=== PATIENT | male | born 1960 | race African-American/Black ===

== ENCOUNTER 2024-04-26 19:12 | Emergency (ER) | payer SELFPAY ==
[~2024-04-26] VITALS: Ht 182.9 cm; Wt 111.0 kg
[2024-04-26 19:14] VITALS: O2SAT 98
[2024-04-26] MEDS: KETOROLAC 15MG/ML VIAL IM ONE (22:04)
[2024-04-26] MEDS: CYCLOBENZAPRINE 10MG TABLET PO ONE (22:04)
[2024-04-26] MEDS ORDERED: NAPR-681 MT (23:05)
[2024-04-26] MEDS ORDERED: CYCL10TA21 MT (23:05)
[2024-04-26 23:18] VITALS: BP 137/78; PULSE 67; RESP 16; TEMP 98.8
== END 2024-04-26 23:19 | disposition home or self-care (01) ==
LOC: ER 19:12
DX: M16.12 Unilateral primary osteoarthritis, left hip (principal); Z98.890 Other specified postprocedural states
CPT/HCPCS: 73502; 96372; 99283; J1885; Z7610

== ENCOUNTER 2024-06-30 10:28 | Inpatient (IN) | payer MEDICAID, OTHER ==
[~2024-06-30] VITALS: Ht 182.9 cm; Wt 100.3 kg
[~2024-06-30 10:28] MED LIST: CYCL10TA21 MT; NAPR-681 MT
[2024-06-30 10:56] LABS: BASOPHILS % 0.5 % (0.0-2.0); DIFFERENTIAL COMMENT 0; EOSINOPHILS % 0.3 % (0.0-5.0); HEMATOCRIT. 32.9 % (42.0-52.0); HEMOGLOBIN. 10.6 g/dL (14.0-18.0); LYMPHOCYTES % 12.6 % (20.0-50.0); MEAN CORPUSCULAR HGB CONC 32.1 g/dL (31.0-37.0); MEAN CORPUSCULAR VOLUME 74.7 fL (80.0-94.0); MEAN PLATELET VOLUME 7.9 fl (7.4-10.4); MONOCYTES % 5.1 % (2.0-8.0); NEUTROPHILS % 81.5 % (40.0-76.0); PLATELET 473 x1000/uL (130-400); RED BLOOD CELL COUNT 4.41 mill/uL (4.7-6.1); RED CELL DISTRIBUTION WIDTH 16.3 % (11.6-14.6); WHITE BLOOD COUNT 10.7 x1000/uL (4.5-11.0)
[2024-06-30 11:02] LABS: CHLORIDE 103 mEq/L (98-107); POTASSIUM 4.4 mEq/L (3.5-5.1); SODIUM 134 mEq/L (136-145)
[2024-06-30 11:03] LABS: CARBON DIOXIDE 19 mEq/L (21-32)
[2024-06-30 11:04] LABS: CALCIUM 9.8 mg/dL (8.7-10.4)
[2024-06-30 11:08] LABS: CREATININE 1.3 mg/dL (0.6-1.3); GLUCOSE 103 mg/dL (70-105); UREA NITROGEN BLOOD 20 mg/dL (9-23)
[2024-06-30] MEDS: ONDANSETRON 4MG ODT PO ONE (11:31)
[2024-06-30] MEDS: KETOROLAC 30MG/ML VIAL IM ONE (11:31)
[2024-06-30 12:41] LABS: ALANINE AMINOTRANSFERASE 21 IU/L (10-49); ALBUMIN 4.1 g/dL (3.2-4.8); ASPARTATE AMINOTRANSFERASE 25 IU/L (<34); BILIRUBIN DIRECT 0.3 mg/dL (<=3.0); BILIRUBIN TOTAL 0.8 mg/dL (0.1-1.0)
[2024-06-30 12:42] LABS: PROTEIN TOTAL 7.9 g/dL (6.0-8.3)
[2024-06-30 12:43] LABS: TROPONIN I HIGH SENSITIVITY 175 ng/L (3.0-53)
[2024-06-30] MEDS: SODIUM CHLORIDE 0.9% 1,000 ML IV ONE (13:50)
[2024-06-30] MEDS: ASPIRIN 81MG TABLET PO ONE (13:50)
[2024-06-30 15:36] LABS: TROPONIN I HIGH SENSITIVITY 209 ng/L (3.0-53)
[2024-06-30] MEDS: AMLODIPINE 10MG TABLET PO NR (17:53)
[2024-06-30 18:41] LABS: CLARITY URINE CLOUDY (CLEAR); COLOR URINE DARK YELLOW (YELLOW); GLUCOSE URINE NEGATIVE (NEGATIVE); KETONES URINE TRACE (NEGATIVE); LEUKOCYTE ESTERASE URINE TRACE (NEGATIVE); NITRITE URINE NEGATIVE (NEGATIVE); OCCULT BLOOD URINE 2+ (NEGATIVE); PROTEIN URINE 2+ (NEGATIVE); SPECIFIC GRAVITY URINE 1.027 (1.005-1.030)
[2024-06-30 19:00] LABS: SQUAMOUS EPITHELIAL CELL URINE 1+ /lpf (RARE/1+)
[2024-06-30 19:01] LABS: BACTERIA URINE 1+
[2024-06-30 19:31] LABS: TROPONIN I HIGH SENSITIVITY 200 ng/L (3.0-53)
[2024-06-30 21:02] VITALS: BP 108/82; PULSE 82; RESP 20; TEMP 98.5
[2024-06-30 22:32] VITALS: BP 108/82; PULSE 62; RESP 20; TEMP 98.5
[2024-07-01] VITALS: BP 118/71; PULSE 58; RESP 21; TEMP 98.2
[2024-07-01] MEDS ORDERED: ACETAMINOPHEN 650MG/20.3ML UDC PO PRN (01:15)
[2024-07-01] MEDS ORDERED: ONDANSETRON HCL 4MG/2ML INJ IV PRN ×2 (01:15→13:30)
[2024-07-01 01:48] LABS: TROPONIN I HIGH SENSITIVITY 174 ng/L (3.0-53)
[2024-07-01] MEDS: ACETAMINOPHEN 325MG TABLET PO PRN ×2 (03:57→14:44)
[2024-07-01 04:01] VITALS: BP 141/70; PULSE 65; RESP 13; TEMP 98
[2024-07-01] MEDS: ENOXAPARIN 30MG/0.3ML SYR SUBCUT SCH (08:35)
[2024-07-01] MEDS: ASPIRIN 81MG TABLET PO SCH (08:35)
[2024-07-01 08:36] VITALS: BP 130/79; PULSE 74; RESP 18; TEMP 98.5
[2024-07-01] MEDS: AMLODIPINE 5MG TABLET PO SCH (08:41)
[2024-07-01 08:59] LABS: BASOPHILS % 0.7 % (0.0-2.0); DIFFERENTIAL COMMENT 0; EOSINOPHILS % 1.5 % (0.0-5.0); HEMATOCRIT. 32.5 % (42.0-52.0); HEMOGLOBIN. 10.5 g/dL (14.0-18.0); LYMPHOCYTES % 15.4 % (20.0-50.0); MEAN CORPUSCULAR HEMOGLOBIN 24.5 pg (28.0-32.0); MEAN CORPUSCULAR HGB CONC 32.2 g/dL (31.0-37.0); MEAN CORPUSCULAR VOLUME 76.2 fL (80.0-94.0); MEAN PLATELET VOLUME 8.2 fl (7.4-10.4); MONOCYTES % 3.4 % (2.0-8.0); PLATELET 417 x1000/uL (130-400); RED BLOOD CELL COUNT 4.26 mill/uL (4.7-6.1); RED CELL DISTRIBUTION WIDTH 15.9 % (11.6-14.6); WHITE BLOOD COUNT 8.6 x1000/uL (4.5-11.0)
[2024-07-01 09:07] LABS: CALCIUM 9.5 mg/dL (8.7-10.4); CARBON DIOXIDE 21 mEq/L (21-32); CHLORIDE 104 mEq/L (98-107); POTASSIUM 4.1 mEq/L (3.5-5.1); SODIUM 134 mEq/L (136-145)
[2024-07-01 09:12] LABS: CREATININE 1.2 mg/dL (0.6-1.3); GLUCOSE 94 mg/dL (70-105)
[2024-07-01 09:13] LABS: UREA NITROGEN BLOOD 21 mg/dL (9-23)
[2024-07-01 09:14] LABS: PHOSPHORUS 3.6 mg/dL (2.5-4.9)
[2024-07-01 09:44] LABS: TROPONIN I HIGH SENSITIVITY 156 ng/L (3.0-53)
[2024-07-01] MEDS ORDERED: ACETAMINOPHEN 325MG TABLET PO PRN (13:30)
[2024-07-01] MEDS ORDERED: DOCUSATE SODIUM 100MG CAPSULE PO PRN (13:30)
[2024-07-01] MEDS ORDERED: IPRATROPIUM/ALBUTEROL 0.5-3(2.5)MG/3ML NEB HHN PRN (13:30)
[2024-07-01] MEDS: PANTOPRAZOLE SODIUM 40 MG/VIAL IV SCH (14:44)
[2024-07-01 16:00] VITALS: BP 129/74; PULSE 69; RESP 14; TEMP 98
[2024-07-01 16:34] LABS: INR 1.1; PROTHROMBIN TIME 11.9 sec (9.6-11.0)
[2024-07-01 16:42] LABS: IRON 19 ug/dL (65-175)
[2024-07-01 16:44] LABS: TOTAL IRON BINDING CAPACITY 332 ug/dl (250-425)
[2024-07-01 16:48] LABS: FERRITIN 1281 ng/mL (22-322)
[2024-07-01 16:49] LABS: FOLIC ACID (FOLATE) SERUM 5.59 ng/mL (>5.38); VITAMIN B12 SERUM 483 pg/mL (211-911)
[2024-07-01 20:00] VITALS: BP 136/79; PULSE 63; RESP 18; TEMP 98.6
[2024-07-02] VITALS: BP 159/101; PULSE 92; RESP 23
[2024-07-02 04:00] VITALS: BP 133/88; PULSE 77; RESP 20; TEMP 98.1
[2024-07-02 06:20] LABS: *AMPHETAMINES SCREEN URINE NEGATIVE (NEGATIVE); *BARBITURATES SCREEN URINE NEGATIVE (NEGATIVE); *BENZODIAZEPINES SCREEN URINE NEGATIVE (NEGATIVE); *COCAINE SCREEN URINE NEGATIVE (NEGATIVE)
[2024-07-02 06:21] LABS: CANNABINOID URINE SCREEN NEGATIVE (NEGATIVE); ECSTASY MDMA SCREEN URINE NEGATIVE (NEGATIVE); METHADONE URINE SCREEN NEGATIVE (NEGATIVE); OPIATES URINE SCREEN NEGATIVE (NEGATIVE); PHENCYCLIDINE URINE SCREEN NEGATIVE (NEGATIVE)
[2024-07-02 07:43] LABS: BASOPHILS % 0.5 % (0.0-2.0); DIFFERENTIAL COMMENT 0; EOSINOPHILS % 1.2 % (0.0-5.0); HEMATOCRIT. 30.2 % (42.0-52.0); LYMPHOCYTES % 14.8 % (20.0-50.0); MEAN CORPUSCULAR HEMOGLOBIN 24.9 pg (28.0-32.0); MEAN CORPUSCULAR HGB CONC 33.3 g/dL (31.0-37.0); MEAN CORPUSCULAR VOLUME 74.9 fL (80.0-94.0); MEAN PLATELET VOLUME 8.3 fl (7.4-10.4); MONOCYTES % 5.2 % (2.0-8.0); NEUTROPHILS % 78.3 % (40.0-76.0); PLATELET 391 x1000/uL (130-400); RED BLOOD CELL COUNT 4.03 mill/uL (4.7-6.1); RED CELL DISTRIBUTION WIDTH 15.9 % (11.6-14.6); WHITE BLOOD COUNT 8.1 x1000/uL (4.5-11.0)
[2024-07-02 07:46] LABS: CHLORIDE 104 mEq/L (98-107); POTASSIUM 4.4 mEq/L (3.5-5.1); SODIUM 134 mEq/L (136-145)
[2024-07-02 07:49] LABS: CALCIUM 9.6 mg/dL (8.7-10.4); CARBON DIOXIDE 22 mEq/L (21-32)
[2024-07-02 07:54] LABS: GLUCOSE 90 mg/dL (70-105); UREA NITROGEN BLOOD 15 mg/dL (9-23)
[2024-07-02 07:55] LABS: ALANINE AMINOTRANSFERASE 18 IU/L (10-49)
[2024-07-02 07:56] LABS: ALBUMIN 3.8 g/dL (3.2-4.8); ASPARTATE AMINOTRANSFERASE 19 IU/L (<34); BILIRUBIN DIRECT 0.2 mg/dL (<=3.0); BILIRUBIN TOTAL 0.6 mg/dL (0.1-1.0); PROTEIN TOTAL 7.2 g/dL (6.0-8.3)
[2024-07-02 08:00] VITALS: BP 143/89; PULSE 81; RESP 18; TEMP 98.3
[2024-07-02] MEDS: CEFTRIAXONE 1GM/50ML 50 ML IV SCH (11:48)
[2024-07-02 12:00] VITALS: BP 131/83; PULSE 70; RESP 13; TEMP 98.6
[2024-07-02 16:00] VITALS: BP 137/88; PULSE 76; RESP 25; TEMP 98.1
[2024-07-02] MEDS ORDERED: DOCU-138 MT (16:16)
[2024-07-02] MEDS ORDERED: CIPR-263 MT (16:16)
[2024-07-02] MEDS ORDERED: FERR-71 MT (16:16)
[2024-07-02] MEDS: CYANOCOBALAMIN 1000MCG/ML VIAL IM NR (17:46)
[2024-07-02] MEDS: FERROUS SULFATE 325MG TABLET PO SCH (17:46)
[2024-07-02 18:22] VITALS: BP 137/88; PULSE 76; TEMP 98.1; O2SAT 99
== END 2024-07-02 20:00 | disposition home or self-care (01) | DRG 243 ==
LOC: ER 10:28 → 5WST 14:49 → EDBEDREQ 14:51 → EDBEDREQTM 14:51 → 3WST 20:42
PROVIDERS: ADMIT Internal Medicine; ATTEND Internal Medicine
DX: K21.9 Gastro-esophageal reflux disease without esophagitis (principal); I21.A1 Myocardial infarction type 2; M62.82 Rhabdomyolysis; E87.1 Hypo-osmolality and hyponatremia; R62.7 Adult failure to thrive; E86.0 Dehydration; R13.10 Dysphagia, unspecified; I10 Essential (primary) hypertension; N39.0 Urinary tract infection, site not specified; D64.9 Anemia, unspecified; Z95.2 Presence of prosthetic heart valve; Z95.1 Presence of aortocoronary bypass graft; Z68.30 Body mass index [BMI] 30.0-30.9, adult; Z79.82 Long term (current) use of aspirin
CPT/HCPCS: 36415; 71045; 73590; 76700; 80048; 80076; 80305; 81003; 82607; 82728; 82746; 83540; 83550; 83735; 83880; 84100; 84484; 85025; 93005; 93306; 93971; 99285; J0696; J1650; J1885; J2470; J3420; J7030; Q0162